=== PATIENT | male | born 1950 | race Caucasian/White ===

== ENCOUNTER 2023-01-06 13:03 | Inpatient (IN) | payer OTHER ==
[2023-01-06 19:40] VITALS: BMI 28.8
[2023-01-06] MEDS ORDERED: MAGNESIUM HYDROX 2400MG/30ML ORAL SUSPENSION 30 ML CUP PO PRN (20:31)
[2023-01-06] MEDS ORDERED: P-EPHED 60MG/TRIPROLIDI 2.5MG TABLET PO PRN (20:31)
[2023-01-06] MEDS ORDERED: LOPERAMIDE HCL 2 MG CAPSULE PO PRN (20:31)
[2023-01-06] MEDS ORDERED: guaiFENesin 200 MG/10 ML 10 ML UNIT-DOSE CUPS PO PRN (20:31)
[2023-01-06] MEDS ORDERED: POLYETHYLENE GLYCOL (HEALTHYLAX) 3350 17 GM PACKET PO PRN (20:31)
[2023-01-06] MEDS ORDERED: BENZOCAINE/MENTHOL (CHLORASEPTIC ) LOZENGE MM PRN (20:31)
[2023-01-07] MEDS ORDERED: METOPROLOL TARTRATE 25 MG TABLET (FP) PO ONE (02:00)
[2023-01-07] MEDS ORDERED: TUBERCULIN PPD 5 TU/0.1ML VIAL ID ONE ×2 (02:30→03:19)
[2023-01-07] MEDS: THIAMINE HCL 100 MG TABLET (FP) PO SCH ×2 (02:38→21:09)
[2023-01-07] MEDS: IBUPROFEN 400 MG TABLET (FP) PO PRN (02:40)
[2023-01-07] MEDS: PRENATAL VITAMINS W/ FOLIC ACID TABLET (FP) PO SCH (09:24)
[2023-01-07] MEDS: MAG HYDROX/AL HYDROX/SIMETH 30 ML UNIT-DOSE CUP PO PRN (10:14)
[2023-01-07 12:23] LABS: HEMATOCRIT 34.2 % (35.4-49); HEMOGLOBIN 11.3 GM/dL (11.7-16.9); MCHC 33.2 g/dl (32.0-35.9); MEAN CELL VOLUME 87.4 fl (80-96); MEAN PLT VOLUME 7.7 fl (7.5-11.1); PLATELET COUNT 409 10^3/uL (134-434); RBC 3.91 M/mm3 (4.00-5.60); RDW 18.2 % (11.9-15.9); WHITE BLOOD COUNT 13.9 K/mm3 (4.0-10.0)
[2023-01-07 12:38] LABS: CALCIUM 9.7 mg/dL (8.5-10.1)
[2023-01-07 12:39] LABS: ALBUMIN 3.2 g/dl (3.4-5.0); BLOOD UREA NITROGEN 22.8 mg/dL (7-18)
[2023-01-07 12:41] LABS: URIC ACID 7.9 mg/dL (2.6-7.2)
[2023-01-07 12:42] LABS: BILIRUBIN,TOTAL 1.5 mg/dL (0.2-1); CREATININE 1.1 mg/dL (0.55-1.3); TOT PROT 7.8 g/dl (6.4-8.2)
[2023-01-07] MEDS: ACETAMINOPHEN 325 MG TABLET (FP) PO PRN (17:49)
[2023-01-07] MEDS: MELATONIN 5 MG TABLETS PO PRN (21:09)
[2023-01-08] MEDS: IBUPROFEN 400 MG TABLET (FP) PO PRN ×2 (01:02→21:42)
[2023-01-08 01:29] LABS: EPI CELLS 2 /uL (0-25.1); HYALINE CASTS 1 /uL (0-3.1); PH,URINE 5.5 (5.0-8.0); URINE APPEARANCE CLEAR; URINE BACTERIA 1 /uL (0-1359); URINE BILIRUBIN NEGATIVE (NEGATIVE); URINE COLOR YELLOW; URINE GLUCOSE (UA) NEGATIVE (NEGATIVE); URINE KETONE NEGATIVE (NEGATIVE); URINE LEUK ESTERASE NEGATIVE (NEGATIVE); URINE NITRITE NEGATIVE (NEGATIVE); URINE PROTEIN TRACE (NEGATIVE); URINE RBC 50 /uL (0-23.9); URINE WBC 4 /uL (0-25.8)
[2023-01-08] MEDS: PRENATAL VITAMINS W/ FOLIC ACID TABLET (FP) PO SCH (09:39)
[2023-01-08] MEDS: FAMOTIDINE 20 MG TABLET PO SCH ×2 (11:06→21:42)
[2023-01-08] MEDS: DOXYCYCLINE HYCLATE 100 MG TABLET PO SCH (17:48)
[2023-01-08] MEDS: THIAMINE HCL 100 MG TABLET (FP) PO SCH (21:41)
[2023-01-08] MEDS: MELATONIN 5 MG TABLETS PO PRN (21:41)
[2023-01-09] MEDS: PRENATAL VITAMINS W/ FOLIC ACID TABLET (FP) PO SCH (10:09)
[2023-01-09] MEDS: DOXYCYCLINE HYCLATE 100 MG TABLET PO SCH ×2 (10:09→18:10)
[2023-01-09] MEDS: FAMOTIDINE 20 MG TABLET PO SCH ×2 (10:09→21:31)
[2023-01-09 12:31] LABS: EPI CELLS 1 /uL (0-25.1); HYALINE CASTS 0 /uL (0-3.1); PH,URINE 5.5 (5.0-8.0); URINE APPEARANCE CLEAR; URINE BACTERIA 1 /uL (0-1359); URINE BILIRUBIN NEGATIVE (NEGATIVE); URINE COLOR YELLOW; URINE GLUCOSE (UA) NEGATIVE (NEGATIVE); URINE KETONE NEGATIVE (NEGATIVE); URINE LEUK ESTERASE NEGATIVE (NEGATIVE); URINE NITRITE NEGATIVE (NEGATIVE); URINE PROTEIN NEGATIVE (NEGATIVE); URINE RBC 14 /uL (0-23.9); URINE UROBILINOGEN 0.2 mg/dL (0.2-1.0); URINE WBC 2 /uL (0-25.8)
[2023-01-09 13:56] LABS: ALBUMIN 2.9 g/dl (3.4-5.0); BLOOD UREA NITROGEN 23.1 mg/dL (7-18)
[2023-01-09 13:58] LABS: CALCIUM 9.6 mg/dL (8.5-10.1); TOT PROT 7.3 g/dl (6.4-8.2); URIC ACID 7.5 mg/dL (2.6-7.2)
[2023-01-09 13:59] LABS: BILIRUBIN,TOTAL 0.8 mg/dL (0.2-1)
[2023-01-09 14:01] LABS: CREATININE 0.9 mg/dL (0.55-1.3)
[2023-01-09] MEDS: MAG HYDROX/AL HYDROX/SIMETH 30 ML UNIT-DOSE CUP PO PRN (19:02)
[2023-01-09] MEDS: THIAMINE HCL 100 MG TABLET (FP) PO SCH (21:31)
[2023-01-09] MEDS: MELATONIN 5 MG TABLETS PO PRN (21:32)
[2023-01-10] MEDS: IBUPROFEN 400 MG TABLET (FP) PO PRN ×2 (00:38→19:17)
[2023-01-10] MEDS: DOXYCYCLINE HYCLATE 100 MG TABLET PO SCH ×2 (09:37→18:31)
[2023-01-10] MEDS: PRENATAL VITAMINS W/ FOLIC ACID TABLET (FP) PO SCH (09:37)
[2023-01-10] MEDS: FAMOTIDINE 20 MG TABLET PO SCH ×2 (09:37→21:22)
[2023-01-10] MEDS: ACETAMINOPHEN 325 MG TABLET (FP) PO PRN (09:38)
[2023-01-10 10:39] LABS: BASO % 0.5 % (0-2.0); EOS % 0.9 % (0-4.5); HEMATOCRIT 34.3 % (35.4-49); HEMOGLOBIN 11.2 GM/dL (11.7-16.9); LYMPH % 24.9 % (8-40); MCH 28.2 pg (25.7-33.7); MCHC 32.6 g/dl (32.0-35.9); MEAN CELL VOLUME 86.4 fl (80-96); MEAN PLT VOLUME 7.4 fl (7.5-11.1); MONO % 7.7 % (3.8-10.2); PLATELET COUNT 419 10^3/uL (134-434); RBC 3.97 M/mm3 (4.00-5.60); RDW 17.9 % (11.9-15.9)
[2023-01-10] MEDS ORDERED: COLLOIDAL OATMEAL 1 EACH PACKET TP SCH (12:00)
[2023-01-10] MEDS: MELATONIN 5 MG TABLETS PO PRN (21:22)
[2023-01-10] MEDS: THIAMINE HCL 100 MG TABLET (FP) PO SCH (21:22)
[2023-01-11] MEDS: IBUPROFEN 400 MG TABLET (FP) PO PRN ×3 (02:59→21:26)
[2023-01-11] MEDS: PRENATAL VITAMINS W/ FOLIC ACID TABLET (FP) PO SCH (10:38)
[2023-01-11] MEDS: FAMOTIDINE 20 MG TABLET PO SCH ×2 (10:38→21:26)
[2023-01-11] MEDS: DOXYCYCLINE HYCLATE 100 MG TABLET PO SCH ×2 (10:38→17:59)
[2023-01-11] MEDS: THIAMINE HCL 100 MG TABLET (FP) PO SCH (21:26)
[2023-01-11] MEDS: MELATONIN 5 MG TABLETS PO PRN (21:26)
[2023-01-11] MEDS: MAG HYDROX/AL HYDROX/SIMETH 30 ML UNIT-DOSE CUP PO PRN (21:27)
[2023-01-12 06:40] VITALS: BP 124/66; PULSE 76; RESP 18; TEMP 98.7
[2023-01-12] MEDS: DOXYCYCLINE HYCLATE 100 MG TABLET PO SCH (09:16)
[2023-01-12] MEDS: FAMOTIDINE 20 MG TABLET PO SCH (09:16)
[2023-01-12] MEDS: PRENATAL VITAMINS W/ FOLIC ACID TABLET (FP) PO SCH (09:17)
== END 2023-01-12 09:18 | disposition home or self-care (01) | DRG 895 ==
LOC: YASAS 13:03 → Y3E 01-07 01:40
PROVIDERS: ADMIT Allergy & Immunology; ATTEND Psychiatry & Neurology Pain Medicine
PROC: HZ42ZZZ Group Counseling for Substance Abuse Treatment, Cognitive-Behavioral (ICD-10-PCS; principal; 2023-01-07)
DX: F10.20 Alcohol dependence, uncomplicated (principal); L03.113 Cellulitis of right upper limb; F17.210 Nicotine dependence, cigarettes, uncomplicated; M19.041 Primary osteoarthritis, right hand; Z89.021 Acquired absence of right finger(s)
CPT/HCPCS: 36415; 73110-TC-RT-FY; 73130-TC-RT-FY; 80053; 81003; 82947; 82962; 83036; 84550; 85025; 85027; 86780; 87086; C9803-CS; U0003; U0005